=== PATIENT | female | born 1960 | race Hispanic/Latino ===

== ENCOUNTER 2016-12-10 23:04 | Emergency (ER) | payer SELFPAY ==
[2016-12-10 23:44] LABS: Hematocrit 38.7 % (36.0-47.0); Mean Platelet Volume 6.6 fL (7.4-10.4); Red Blood Cell (RBC) Count 4.35 mill/uL (4.20-5.40); White Blood Cell (WBC) Count 12.2 thou/uL (4.8-10.8)
[2016-12-10 23:58] LABS: Neutrophil 19 % (42-75); Reactive Lymphocytes 10 % (0-10)
--- NOTE | 2016-12-11 | CT ---
CT OF HEAD NONCONTRAST: Indication: Headache, history of hypertension. Reference made to 08-28-14 CT head exam. FINDINGS: The ventricular system is normal in size. There is no evidence of intracranial hemorrhage, mass effe ct, or midline shift. 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 IMPRESSION: No evidence of a cute intracranial abnormality. POS: [facility]
[2016-12-11 00:02] LABS: ALT (SGPT) 21 U/L (8-55); AST (SGOT) 24 U/L (5-34); Alkaline Phosphatase 70 U/L (40-150); Anion Gap 13 mmol/L (10-20); BUN (Urea Nitrogen) 17 mg/dL (9.8-20.1); Bilirubin, Total 0.4 mg/dL (0.2-1.2); Calc. Creatinine Clearance 0 mL/min (70-130); Calcium 9.3 mg/dL (7.8-10.44); Carbon Dioxide 24 mmol/L (22-29); Chloride 105 mmol/L (98-107); Estimated GFR-MDRD 70; Magnesium 2.2 mg/dL (1.6-2.6); Protein, Total 7.2 g/dL (6.0-8.3)
[2016-12-11] MEDS ORDERED: Ketorolac Tromethamine 30 MG/ML VIAL ONE (00:03)
[2016-12-11 00:07] LABS: Troponin I Less than 0.010 ng/mL (< 0.028)
[2016-12-11] MEDS ORDERED: Potassium Chloride 20 MEQ TAB ONE (00:39)
== END 2016-12-11 00:45 | disposition home or self-care (01) ==
LOC: ERS 23:04
DX: R51 Headache (principal); I10 Essential (primary) hypertension
CPT/HCPCS: 36415; 70450; 80053; 82553; 83735; 84484; 85025; 93005; 96372; J1885

== ENCOUNTER 2017-03-06 11:36 | Emergency (ER) | payer SELFPAY ==
[2017-03-06] MEDS ORDERED: Acetaminophen 500 MG TAB ONE (14:22)
== END 2017-03-06 14:49 | disposition home or self-care (01) ==
LOC: ERS 11:36
DX: J11.1 Influenza due to unidentified influenza virus with other respiratory manifestations (principal); I10 Essential (primary) hypertension
CPT/HCPCS: 99283

== ENCOUNTER 2020-06-13 15:54 | Outpatient (CLI) | payer OTHER | END 2020-06-13 15:55 | disposition home or self-care (01) | LOC: BICRAD 15:54 | PROVIDERS: ATTEND Family Medicine | DX: U07.1 COVID-19 (principal) | CPT/HCPCS: 71046 ==

== ENCOUNTER 2023-01-25 20:37 | Emergency (ER) | payer SELFPAY ==
[2023-01-25] MEDS ORDERED: Ketorolac Tromethamine 30 MG/ML VIAL ONE (21:25)
== END 2023-01-25 23:34 | disposition home or self-care (01) ==
LOC: ERS 20:37
DX: M17.12 Unilateral primary osteoarthritis, left knee (principal); I10 Essential (primary) hypertension
CPT/HCPCS: 96372; J1885